=== PATIENT | female | born 1935 | race Two or more races ===

== ENCOUNTER 2019-02-17 13:09 | Inpatient (IN) | payer MEDICARE, MEDICAID ==
[~2019-02-17] VITALS: Ht 165.1 cm; Wt 51.5 kg
[2019-02-17 13:53] LABS: Basophils # (auto) 0 uL; Basophils % (auto) 0.6 % (0.0-2.0); Eosinophils # (auto) 0.1 uL; Eosinophils % (auto) 3.1 % (0.0-7.0); Hematocrit 43.7 % (36.0-46.0); Hemoglobin 14.8 g/dL (12.2-16.2); Lymphocytes # (auto) 1.3 uL; Lymphocytes % (auto) 28.2 % (10.0-50.0); Mean Corpuscular Hemoglobin 30.3 pg (28.0-32.0); Mean Corpuscular Hgb Conc. 33.8 g/dL (32.0-36.0); Mean Corpuscular Volume 89.6 fL (80.0-100.0); Monocytes # (auto) 0.3 uL; Monocytes % (auto) 7.6 % (0.0-12.0); Neutrophils # (auto) 2.8 uL; Neutrophils % (auto) 60.5 % (37.0-80.0); Nucleated Red Blood Cells % 0.1 %; Platelet Count (auto) 197 10^3/uL (140-450); Red Blood Cells 4.88 10^6/uL (4.0-5.20); Red Cell Distribution Width 14.4 % (11.8-14.3); White Blood Cell 4.6 10^3/uL (4.4-10.8)
[2019-02-17 14:03] LABS: Alanine Aminotransferase 104 U/L (13-56); Albumin 3.9 g/dL (3.4-5.0); Anion Gap 7 (5-15); Aspartate Aminotransferase 72 U/L (15-37); BUN/Creatinine Ratio 12.4; Blood Urea Nitrogen 18 mg/dL (7-18); Calcium 9.3 mg/dL (8.5-10.1); Carbon Dioxide 24 mmol/L (21-32); Chloride 107 mmol/L (98-107); GFR African American 44 mL/min; GFR Non-African American 37 mL/min; Glucose 169 mg/dL (74-106); Potassium 4.4 mmol/L (3.5-5.1); Sodium 138 mmol/L (136-145)
[2019-02-17 14:07] LABS: Alkaline Phosphatase 145 U/L (45-117); Bilirubin, Total 0.5 mg/dL (0.2-1.0); Total Protein 8.5 g/dL (6.4-8.2)
[2019-02-17 20:22] LABS: Urine Bacteria FEW /hpf (None Seen); Urine Blood Negative /uL (Negative); Urine Hyaline Cast FEW /lpf (0 - 2); Urine Specific Gravity 1.017 (1.001-1.035); Urine WBC 2 /hpf (0 - 5)
[2019-02-17] MEDS ORDERED: ONDANSETRON HCL 4 MG/2 ML VIAL IV ONE (21:00)
[2019-02-17] MEDS ORDERED: SODIUM CHLORIDE 0.9% 1,000 ML IV ONE (21:00)
[2019-02-17] MEDS ORDERED: metroNIDAZOLE 500MG/100ML 100 ML IV ONE (23:15)
[2019-02-18] VITALS (7 sets, daily range): BP systolic 138–164; BP diastolic 67–91
[2019-02-18] MEDS ORDERED: DEXTROSE (50%) 50ML SYRG IV PRN
[2019-02-18] MEDS ORDERED: MORPHINE SULF INJ 2 MG/ML SYRINGE 1ML IV PRN
[2019-02-18] MEDS ORDERED: SODIUM CHLORIDE 0.9% 1,000 ML IV SCH
[2019-02-18] MEDS ORDERED: NITROGLYCERIN 0.4 MG SL TAB SL PRN
[2019-02-18] MEDS ORDERED: METO25TA5 PO (00:21)
[2019-02-18] MEDS ORDERED: AMIT10TA6 PO (00:21)
[2019-02-18] MEDS ORDERED: CHOL100055 PO (00:21)
[2019-02-18] MEDS ORDERED: ATOR10TA52 PO (00:21)
[2019-02-18] MEDS ORDERED: ALEN70TA2 PO (00:21)
[2019-02-18] MEDS ORDERED: HYDR-2691 PO (00:21)
[2019-02-18] MEDS ORDERED: AML5T PO (00:21)
[2019-02-18] MEDS ORDERED: INSU70IN3 SC (00:21)
[2019-02-18] MEDS ORDERED: ACE3T PO (00:23)
[2019-02-18] MEDS: InsuLIN REG 1unit/0.01ml Soln (100units/ml) SC SCH ×5 (00:51→23:22)
[2019-02-18] MEDS: ACCU-CHEK COMFORT CURVE STRIP VI SCH ×5 (00:54→23:22)
--- NOTE | 2019-02-18 02:21 | NUR ---
Telemetry admit from ER Patient admitted to Telemetry unit and oriented to primary RN, unit, room, bed, and unit policies regarding patient care and visiting hours. Patient now on continuous telemetry monitoring, tele box #29 and telemetry reading on arrival to unit is sinus rhythm in the 70s. Bed is in lowest position and locked. Call light within reach. Board updated. Patient weighed by bedscale and encouraged to call if they need something. All questions and concerns addressed, patient verbalized understanding.
--- NOTE | 2019-02-18 02:53 | NUR ---
PATIENT NOT FAMILIAR WITH HOME MEDICATIONS. PATIENT STATES THAT WHILE A LIST OF HOME MEDICATIONS ARE AVAILABLE IN THE SYSTEM, PATIENT IS UNABLE TO VERIFY CORRECT MEDICATIONS OR DOSES. PATIENT STATES THAT DAUGHTER PREPARES MEDICATIONS AND PATIENT IS NOT FAMILIAR ENOUGH TO CONFIRM. WILL AWAIT DAUGHTER'S ARRIVAL IN MORNING TO CONFIRM MEDICATION LIST. ENDORSED TO HOTEL ATTENDANT RN.
[2019-02-18] MEDS: traMADol HCL 50 MG TAB PO PRN ×3 (04:41→23:11)
[2019-02-18] MEDS ORDERED: metroNIDAZOLE 500MG/100ML 100 ML IV SCH (06:00)
[2019-02-18 06:28] LABS: Basophils # (auto) 0 uL; Basophils % (auto) 0.6 % (0.0-2.0); Eosinophils # (auto) 0.1 uL; Eosinophils % (auto) 2.7 % (0.0-7.0); Hematocrit 40.5 % (36.0-46.0); Hemoglobin 13.4 g/dL (12.2-16.2); Lymphocytes # (auto) 1.3 uL; Lymphocytes % (auto) 30.5 % (10.0-50.0); Mean Corpuscular Hemoglobin 29.8 pg (28.0-32.0); Mean Corpuscular Volume 90.4 fL (80.0-100.0); Monocytes # (auto) 0.4 uL; Monocytes % (auto) 9.2 % (0.0-12.0); Neutrophils # (auto) 2.4 uL; Nucleated Red Blood Cells % 0.1 %; Platelet Count (auto) 156 10^3/uL (140-450); Red Blood Cells 4.48 10^6/uL (4.0-5.20); Red Cell Distribution Width 14.5 % (11.8-14.3); White Blood Cell 4.2 10^3/uL (4.4-10.8)
[2019-02-18 06:41] LABS: INR 0.96 (0.9-1.15)
[2019-02-18 06:59] LABS: BUN/Creatinine Ratio 12.4; Calcium 8.3 mg/dL (8.5-10.1); Potassium 3.9 mmol/L (3.5-5.1)
[2019-02-18 07:00] LABS: Albumin 3.4 g/dL (3.4-5.0); Bilirubin, Total 0.4 mg/dL (0.2-1.0); Total Protein 7.3 g/dL (6.4-8.2)
--- NOTE | 2019-02-18 08:00 | NUR ---
Morning note patient resting in bed with even and unlabored respirations, no distress noted. Instructed patient on POC, fall precautions and to call for assistance. Instruction provided through Guatemalan translation. Patient verbalized understanding. Fall precautions in place with bed in lowest locked position and call light within reach. Bed alarm on for safety. Will continue to monitor q1hr & PRN.
[2019-02-18] MEDS ORDERED: PANTOPRAZOLE 40 MG/10 ML VIAL INJ IV SCH (10:00)
[2019-02-18] MEDS: MORPHINE SULFATE 4 MG/ML SYR/VIAL IV PRN (10:35)
[2019-02-18] MEDS: LEVOFLOXACIN 250MG 50 ML IV SCH (10:36)
--- NOTE | 2019-02-18 10:41 | NUR ---
D/C Planning Per SS consult for advance directive. Information for Durable power of erisa attorney for health care was given to Pt at bedside. Pt verbalize understanding.
--- NOTE | 2019-02-18 10:45 | NUR ---
was at bedside - Dr. Bond
[2019-02-18] MEDS ORDERED: amLODIPine BESYLATE 5 MG TAB PO ONE ×2 (11:00→11:15)
[2019-02-18] MEDS ORDERED: METOPROLOL SUCCINATE XL 50 MG TAB PO ONE ×2 (11:00→11:15)
--- NOTE | 2019-02-18 11:00 | NUR ---
Nutrition consult/assessment Notes please see attached link for complete assessment. Est. Needs BW (62 kg): 3706-2081 kcal (25-30 kcal/kgBW), 49-62 gms pro (0.8-1.0 gms/kgBW d/t elev RFT CKD). Will continue to monitor pertinent labs and reassess nutrient need prn Addendum: 02/18/19 at [address] Amended: Links added.
[2019-02-18] MEDS ORDERED: PANTOPRAZOLE 40 MG/10 ML VIAL INJ IV ONE ×2 (11:15)
[2019-02-18] MEDS ORDERED: metroNIDAZOLE 500 MG TAB PO ONE (11:15)
[2019-02-18] MEDS: SODIUM CHLORIDE 0.9% 1,000 ML IV SCH (12:20)
--- NOTE | 2019-02-18 12:52 | NUR ---
Family called for update Patient's daughter, Claudia, called requesting update. Password obtained. Claudia spoke with Dr. Palacios's physician multimedia production assistant and received an update.
[2019-02-18] MEDS: metroNIDAZOLE 500 MG TAB PO SCH ×2 (14:00→22:00)
--- NOTE | 2019-02-18 14:21 | NUR ---
was at bedside - Dr. Suzanne MULLIGAN spoke with patient's daughter, Bernarda, at bedside RE: POC.
--- NOTE | 2019-02-18 14:34 | NUR ---
assessment Patient is a 83 year inés female who is alert and oriented. Patients daughter Fela is at bedside translating for us. Patients cognitive abilities are intact. Prior to admission patient lived home with her daughter Fela and family and functioned with assistance. Per patient she will return home to her prior living arrangements post discharge and Fela will transport her home. Patient has a fww, wheelchair, and bedside commode for home use. Patient was on service with [facility]. Per Fela patient to resume with [facility]. I informed patient she has a right to speak to a social work case manager regarding all care. I informed patient she has a right to participate in any and all discharge planning. Patient does not have a POA and advanced directive. I have offered patient information on POA and advanced directives. I informed the patient the advantages and benefits of having an Advanced Directive. Patient has been provided with advanced directive. Patient verbalized understanding and agreed to discharge plan. Addendum: 02/18/19 at 1437 by Anca ABEBE Amended: Links added.
--- NOTE | 2019-02-18 18:58 | NUR ---
Closing note patient resting in bed with even and unlabored respirations, no distress noted. Call light within reach.
--- NOTE | 2019-02-18 19:21 | NUR ---
Care endorsed to ORTIZ Gallagher.
[2019-02-18] MEDS: PANTOPRAZOLE 40 MG TAB PO SCH (22:00)
[2019-02-19 05:13] VITALS: BP 158/92
[2019-02-19] MEDS: InsuLIN REG 1unit/0.01ml Soln (100units/ml) SC SCH ×3 (06:00→17:13)
[2019-02-19 06:38] LABS: Basophils # (auto) 0 uL; Basophils % (auto) 0.6 % (0.0-2.0); Eosinophils # (auto) 0.1 uL; Eosinophils % (auto) 3.2 % (0.0-7.0); Hemoglobin 13.6 g/dL (12.2-16.2); Lymphocytes % (auto) 26.2 % (10.0-50.0); Mean Corpuscular Hemoglobin 29.8 pg (28.0-32.0); Mean Corpuscular Hgb Conc. 33.2 g/dL (32.0-36.0); Mean Corpuscular Volume 89.7 fL (80.0-100.0); Monocytes # (auto) 0.3 uL; Monocytes % (auto) 8.4 % (0.0-12.0); Neutrophils # (auto) 2.4 uL; Neutrophils % (auto) 61.6 % (37.0-80.0); Nucleated Red Blood Cells % 0.1 %; Platelet Count (auto) 153 10^3/uL (140-450); Red Blood Cells 4.57 10^6/uL (4.0-5.20); Red Cell Distribution Width 14.3 % (11.8-14.3); White Blood Cell 3.9 10^3/uL (4.4-10.8)
[2019-02-19 06:57] LABS: Albumin 3.3 g/dL (3.4-5.0); BUN/Creatinine Ratio 11.1; Calcium 8.4 mg/dL (8.5-10.1); Potassium 4.1 mmol/L (3.5-5.1)
[2019-02-19 07:00] LABS: Bilirubin, Total 0.5 mg/dL (0.2-1.0); Total Protein 7.2 g/dL (6.4-8.2)
[2019-02-19] MEDS: metroNIDAZOLE 500 MG TAB PO SCH ×3 (07:02→22:30)
[2019-02-19] MEDS: ONDANSETRON HCL 4 MG/2 ML VIAL IV PRN ×2 (07:04→22:31)
[2019-02-19] MEDS: ACCU-CHEK COMFORT CURVE STRIP VI SCH ×3 (07:04→17:13)
--- NOTE | 2019-02-19 07:45 | NUR ---
opening patient in bed, asleep, bed in lowest position,call light within reach. No distress noted at this time. will f/u with morning assessment.
[2019-02-19 08:39] VITALS: BP 154/74
[2019-02-19] MEDS: LEVOFLOXACIN 250MG 50 ML IV SCH (09:21)
[2019-02-19] MEDS: PANTOPRAZOLE 40 MG TAB PO SCH ×2 (09:22→22:30)
[2019-02-19] MEDS: amLODIPine BESYLATE 5 MG TAB PO SCH (09:22)
[2019-02-19] MEDS ORDERED: METOPROLOL SUCCINATE XL 50 MG TAB PO SCH (10:00)
--- NOTE | 2019-02-19 10:45 | NUR ---
md risa leija
[2019-02-19] MEDS ORDERED: PROMETHAZINE HCL 25 MG/ML 1ML IV ONE (11:00)
[2019-02-19] MEDS ORDERED: METOPROLOL TARTRATE 25 MG TAB PO ONE (12:30)
--- NOTE | 2019-02-19 12:30 | NUR ---
blood pressure pressure elevated to 176/89 informed MD, new orders for metoprolol to administer will give medications as ordered
[2019-02-19 13:00] VITALS: BP 176/89
[2019-02-19] MEDS: traMADol HCL 50 MG TAB PO PRN (15:14)
--- NOTE | 2019-02-19 16:18 | NUR ---
spoke with daughter per the daughters request of help filling out the forms for POA, talks to Anca Lee about it, she states the patient needs to fill out the paperwork as they wish and sign in front of a notary. patient and daughter informed about this, no other questions at this time
[2019-02-19 16:22] VITALS: BP 149/72
--- NOTE | 2019-02-19 19:30 | NUR ---
OPENING SHIFT NOTE Assumed care of patient who is A&Ox4. Currently on RA with no s/s of distress or SOB. Reports 7/10 ABD pain. Pain management options discussed with patient. Patient is able to transfer to BSC with standby assist at this time. POC discussed with patient who verbalizes understanding. All questions answered. Bed is in low locked position with side rails up x2. Call light is within reach and patient encouraged to call for assistance when needed. Will continue to monitor for changes PRN.
[2019-02-19 20:00] VITALS: BP 162/74
[2019-02-19] MEDS: SODIUM CHLORIDE 0.9% 1,000 ML IV SCH (20:05)
[2019-02-19 22:02] VITALS: BP 133/70
[2019-02-19] MEDS: MORPHINE SULFATE 4 MG/ML SYR/VIAL IV PRN (22:31)
[2019-02-19] MEDS: METOPROLOL TARTRATE 25 MG TAB PO SCH (22:38)
[2019-02-20] MEDS: ACCU-CHEK COMFORT CURVE STRIP VI SCH ×4 (00:04→18:01)
[2019-02-20] MEDS: MORPHINE SULFATE 4 MG/ML SYR/VIAL IV PRN ×3 (03:12→18:09)
--- NOTE | 2019-02-20 03:15 | NUR ---
Patient c/o 8/10 abdominal pain. Medicated per orders.
[2019-02-20 05:33] VITALS: BP 164/81
[2019-02-20] MEDS: metroNIDAZOLE 500 MG TAB PO SCH ×3 (05:33→21:46)
[2019-02-20] MEDS: InsuLIN REG 1unit/0.01ml Soln (100units/ml) SC SCH ×4 (05:34→18:00)
[2019-02-20] MEDS: SODIUM CHLORIDE 0.9% 1,000 ML IV SCH ×2 (05:48→12:45)
--- NOTE | 2019-02-20 05:54 | NUR ---
MYCOLOGY TEACHER reports BP of 164/81 with heart rate of 78. Reassessed by this RN and BP is 129/70; hear rate 80.
[2019-02-20 06:15] LABS: Basophils # (auto) 0 uL; Basophils % (auto) 0.5 % (0.0-2.0); Eosinophils # (auto) 0.1 uL; Eosinophils % (auto) 2.6 % (0.0-7.0); Hematocrit 39.2 % (36.0-46.0); Lymphocytes % (auto) 22.8 % (10.0-50.0); Mean Corpuscular Hemoglobin 29.9 pg (28.0-32.0); Mean Corpuscular Hgb Conc. 33.2 g/dL (32.0-36.0); Mean Corpuscular Volume 89.9 fL (80.0-100.0); Monocytes # (auto) 0.4 uL; Monocytes % (auto) 8.1 % (0.0-12.0); Nucleated Red Blood Cells % 0.1 %; Platelet Count (auto) 154 10^3/uL (140-450); Red Blood Cells 4.36 10^6/uL (4.0-5.20); Red Cell Distribution Width 14.1 % (11.8-14.3); White Blood Cell 4.5 10^3/uL (4.4-10.8)
[2019-02-20 06:27] LABS: Albumin 3.2 g/dL (3.4-5.0); BUN/Creatinine Ratio 10.3; Bilirubin, Total 0.5 mg/dL (0.2-1.0); Calcium 8.8 mg/dL (8.5-10.1)
[2019-02-20 08:00] VITALS: BP 162/74
[2019-02-20 08:02] VITALS: BP 141/79
[2019-02-20] MEDS: ONDANSETRON HCL 4 MG/2 ML VIAL IV PRN ×2 (08:25→18:06)
[2019-02-20] MEDS: LEVOFLOXACIN 250MG 50 ML IV SCH (09:38)
[2019-02-20] MEDS: PANTOPRAZOLE 40 MG TAB PO SCH ×2 (09:39→21:46)
[2019-02-20] MEDS: amLODIPine BESYLATE 5 MG TAB PO SCH (09:39)
[2019-02-20] MEDS: METOPROLOL TARTRATE 25 MG TAB PO SCH ×2 (09:40→21:47)
--- NOTE | 2019-02-20 10:50 | NUR ---
Hospitalist at bedside MD Bond at bedside, aware of patient's status. MD spoke to patient and pt's daughter in detail regarding Poc, labs and test results including AAA. Patient and daughter verbalized understanding. Awaiting EGD at this time. Cont care
--- NOTE | 2019-02-20 11:28 | NUR ---
Patient taken down to preop accompanied by pt's daughter. No distress or sob noted. Will cont care on arrival back to unit
[2019-02-20] MEDS ORDERED: LIDOCAINE VISCOUS 2% 15ML UD ONE (12:05)
[2019-02-20] MEDS ORDERED: FLUMAZENIL 0.1 MG/ML INJ 10ML MDV IV ONE (12:05)
[2019-02-20] MEDS ORDERED: SODIUM CHLORIDE LOCK 10 ML ONE (12:05)
[2019-02-20] MEDS ORDERED: NALOXONE HCL 0.4 MG/ML VIAL ONE (12:05)
[2019-02-20] MEDS ORDERED: diphenhdrAMINE HCL 50 MG/1 ML VL ONE (12:06)
[2019-02-20] MEDS ORDERED: MIDAZOLAM HCL 5 MG/ML-1ML VIAL ONE (12:06)
[2019-02-20] MEDS ORDERED: fentaNYL CITRATE 100 MCG/2 ML VL ONE (12:06)
[2019-02-20 12:13] VITALS: BP 143/72
--- NOTE | 2019-02-20 13:26 | NUR ---
Patient back from PACU No s/s of distress or sob noted. VSS. Patient denies pain at this time. Will cont care
[2019-02-20] MEDS: SUCRALFATE 1 GM/10 ML ORAL SUSP PO SCH ×3 (13:58→21:46)
[2019-02-20] MEDS: hydrALAZINE HCL 25 MG TAB PO SCH ×2 (14:28→21:47)
[2019-02-20 16:29] VITALS: BP 139/70
--- NOTE | 2019-02-20 19:05 | NUR ---
OPENING SHIFT NOTE Assumed care of patient who is A&O x4. On RA with no s/s of distress or SOB. Denies pain at this time. Patient is able to ambulate independently without the use of assistive devices. POC discussed with patient who verbalizes understanding. Call light is within reach and patient encouraged to call for assistance when needed. Will continue to monitor for changes PRN. Addendum: 02/20/19 at 2040 by JOSE HATHAWAY RN RN Disregard note. Wrong patient
--- NOTE | 2019-02-20 19:15 | NUR ---
OPENING SHIFT NOTE Assumed care of patient who is A&Ox4. Currently on RA with no s/s of SOB or distress. Reports mild abdominal pain. Patient has recently been medicated for pain. Patient is able to transfer to the bedside commode with standby assistance. Bed is in low locked position with side rails up x2. Call light is within reach; encouraged to call for assistance when needed. Will continue to monitor for changes PRN.
--- NOTE | 2019-02-20 19:15 | NUR ---
Patient care endorsed endorsed care to Jesi marte. Patient sitting up in bed in no distress or sob noted. Call light within reach. Fall precs in place per protocol.
[2019-02-20] MEDS: traMADol HCL 50 MG TAB PO PRN (20:55)
[2019-02-20 22:04] VITALS: BP 147/71
[2019-02-21] MEDS: ACCU-CHEK COMFORT CURVE STRIP VI SCH ×3 (00:23→11:45)
[2019-02-21] MEDS: MORPHINE SULFATE 4 MG/ML SYR/VIAL IV PRN (04:14)
[2019-02-21] MEDS: ONDANSETRON HCL 4 MG/2 ML VIAL IV PRN (04:14)
[2019-02-21 05:02] VITALS: BP 157/81
[2019-02-21] MEDS: InsuLIN REG 1unit/0.01ml Soln (100units/ml) SC SCH ×3 (06:00→12:00)
[2019-02-21] MEDS: SODIUM CHLORIDE 0.9% 1,000 ML IV SCH (06:11)
[2019-02-21] MEDS: hydrALAZINE HCL 25 MG TAB PO SCH ×2 (06:15→14:00)
[2019-02-21] MEDS: metroNIDAZOLE 500 MG TAB PO SCH ×2 (06:15→14:00)
[2019-02-21] MEDS: SUCRALFATE 1 GM/10 ML ORAL SUSP PO SCH ×2 (06:15→12:04)
--- NOTE | 2019-02-21 07:30 | NUR ---
Opening Shift Note Assuming care of patient at this time. Patient is awake and alert. Chinese speaking. Patient denies pain. Bed is locked and lowered with side rails up x2. Patient shows no signs or symptoms of distress or shortness of breath. Instructed patient on the plan of care for today and to call for assistance as needed. Bed is locked and lowered with side rails up x2. Call light within reach. Will continue to round hourly and as needed.
[2019-02-21 08:12] VITALS: BP 150/73
[2019-02-21] MEDS: LEVOFLOXACIN 250MG 50 ML IV SCH (09:32)
[2019-02-21] MEDS: PANTOPRAZOLE 40 MG TAB PO SCH (09:32)
[2019-02-21] MEDS: amLODIPine BESYLATE 5 MG TAB PO SCH (09:33)
[2019-02-21] MEDS: METOPROLOL TARTRATE 25 MG TAB PO SCH (09:34)
[2019-02-21] MEDS: traMADol HCL 50 MG TAB PO PRN (09:38)
[2019-02-21 12:02] VITALS: BP 130/63
[2019-02-21 13:43] VITALS: BP 150/73
--- NOTE | 2019-02-21 14:51 | NUR ---
Discharge Discharge instructions given as ordered. Encourage to follow up with PMD as instructed. All questions and concerns addressed. Patient verbalized understanding. Patient's daughter states she already scheduled a follow-up appointment. Home medications held in Pharmacy returned to patient, and IV removed with catheter intact, pressure dressing applied. Telemetry unit returned to ICU. Patient taken to vehicle via wheelchair with all personal belongings, accompanied by staff and family member. No distress noted at time of departure.
== END 2019-02-21 15:00 | disposition home health service (06) | DRG 241 ==
LOC: ER 13:09 → TELE 13:10 → TELE-CENTR 02-18 02:15
PROVIDERS: ADMIT Internal Medicine; ATTEND Internal Medicine
PROC: 0DB68ZX Excision of Stomach, Via Natural or Artificial Opening Endoscopic, Diagnostic (ICD-10-PCS; principal; 2019-02-20 12:08)
DX: K29.70 Gastritis, unspecified, without bleeding (principal); E11.22 Type 2 diabetes mellitus with diabetic chronic kidney disease; M48.54XA Collapsed vertebra, not elsewhere classified, thoracic region, initial encounter for fracture; N18.3 Chronic kidney disease, stage 3 (moderate); E78.5 Hyperlipidemia, unspecified; K57.30 Diverticulosis of large intestine without perforation or abscess without bleeding; I12.9 Hypertensive chronic kidney disease with stage 1 through stage 4 chronic kidney disease, or unspecified chronic kidney disease; I71.4 Abdominal aortic aneurysm, without rupture; K52.9 Noninfective gastroenteritis and colitis, unspecified
CPT/HCPCS: 36415; 43239; 71046; 74176; 76705; 80053; 81001; 82962; 83036; 83605; 83690; 84484; 85025; 85610; 85730; 87045; 87427; 94761; 96361; 96365; 96366; 96375; 97116; 97163; 97530; C9113; G0378; J2250; J2405; J3490

== ENCOUNTER 2019-10-14 13:18 | Inpatient (IN) | payer MEDICARE, MEDICAID ==
[~2019-10-14] VITALS: Ht 149.9 cm; Wt 68.5 kg
[~2019-10-14 13:18] MED LIST: ACE3T PO; ALEN70TA2 PO; AMIT10TA6 PO; AML5T PO; ATOR10TA52 PO; CHOL100055 PO; HYDR-2691 PO; INSU70IN3 SC; METO25TA5 PO
[2019-10-14] MEDS ORDERED: SODIUM CHLORIDE 0.9% 500 ML IVB ONE (13:29)
[2019-10-14] MEDS ORDERED: ONDANSETRON HCL 4 MG/2 ML VIAL IV ONE (13:30)
[2019-10-14 13:41] LABS: Basophils # (auto) 0 10 ^3/uL (0-0.2); Basophils % (auto) 0.5 % (0.0-2.0); Eosinophils # (auto) 0.1 10 ^3/uL (0-0.8); Eosinophils % (auto) 1.1 % (0.0-7.0); Hematocrit 38.6 % (36.0-46.0); Hemoglobin 12.7 g/dL (12.2-16.2); Lymphocytes % (auto) 21.2 % (10.0-50.0); Mean Corpuscular Hemoglobin 29.2 pg (28.0-32.0); Mean Corpuscular Hgb Conc. 32.9 g/dL (32.0-36.0); Mean Corpuscular Volume 88.6 fL (80.0-100.0); Monocytes # (auto) 0.4 10 ^3/uL (0-1.3); Monocytes % (auto) 7.5 % (0.0-12.0); Neutrophils # (auto) 3.4 10 ^3/uL (1.6-8.6); Neutrophils % (auto) 69.7 % (37.0-80.0); Nucleated Red Blood Cells % 0.1 %; Platelet Count (auto) 203 10^3/uL (140-450); Red Blood Cells 4.36 10^6/uL (4.0-5.20); Red Cell Distribution Width 15.3 % (11.8-14.3); White Blood Cell 4.9 10^3/uL (4.4-10.8)
[2019-10-14 14:01] LABS: Albumin 3.7 g/dL (3.4-5.0)
[2019-10-14 14:04] LABS: Bilirubin, Total 0.4 mg/dL (0.2-1.0); Total Protein 8.2 g/dL (6.4-8.2)
[2019-10-14 14:20] LABS: Urine Bacteria NONE SEEN /hpf (None Seen); Urine Blood Negative /uL (Negative); Urine Specific Gravity 1.009 (1.001-1.035); Urine WBC 1 /hpf (0 - 5)
[2019-10-14] MEDS ORDERED: SODIUM CHLORIDE 0.9% 1,000 ML IV SCH (17:47)
[2019-10-14] MEDS ORDERED: LORazepam 2MG/ML-1ML VIAL IV ONE (18:00)
[2019-10-14] MEDS ORDERED: MORPHINE SULF INJ 2 MG/ML SYRINGE 1ML IV PRN (18:00)
[2019-10-14] MEDS ORDERED: NITROGLYCERIN 0.4 MG SL TAB SL PRN (18:00)
[2019-10-14] MEDS: ZINC SULFATE 220mg CAP or TAB PO SCH (18:24)
[2019-10-14] MEDS: ASCORBIC ACID 1,000 MG TAB PO SCH (18:24)
[2019-10-14] MEDS: PIPERACILLIN-TAZOB 3.375GM 100 ML IV SCH (18:24)
[2019-10-14] MEDS: ENOXAPARIN SOD 30 MG/0.3 ML SYRINGE SC SCH (18:24)
[2019-10-14] MEDS: CHOLECALCIFEROL (VITD3) 1,000IU=25mCg TAB PO SCH (18:24)
[2019-10-14] MEDS: ACETAMINOPHEN 500 MG TAB PO PRN (18:26)
[2019-10-14 18:56] LABS: Magnesium 2.6 mg/dL (1.6-2.6)
[2019-10-14 19:05] LABS: CRP High Sensitivity 2.01 mg/dL (< 0.3)
[2019-10-14] MEDS: ATORVASTATIN 20 MG TAB PO SCH (21:50)
[2019-10-14] MEDS ORDERED: hydrALAZINE HCL 25 MG TAB PO SCH (22:00)
[2019-10-14] MEDS ORDERED: ALBUTEROL SULF HFA 90MCG INH 200DOSE IN SCH (22:00)
[2019-10-14 23:25] VITALS: BP 174/82
[2019-10-14] MEDS ORDERED: hydrALAZINE HCL 25 MG TAB PO PRN (23:45)
[2019-10-14] MEDS ORDERED: DEXTROSE (50%) 50ML SYRG IV PRN (23:45)
[2019-10-14] MEDS ORDERED: OXYCODONE W/ ACETAMINOPHEN 5/325MG TABLET PO PRN (23:45)
[2019-10-14] MEDS ORDERED: hydrALAZINE HCL 25 MG TAB PO ONE (23:45)
[2019-10-15] MEDS: AMITRIPTYLINE HCL 10 MG TAB PO SCH ×2 (00:20→22:02)
[2019-10-15] MEDS: PIPERACILLIN-TAZOB 3.375GM 100 ML IV SCH ×2 (00:20→06:10)
[2019-10-15 02:00] VITALS: BP 145/87
[2019-10-15 04:03] VITALS: BP 170/84
[2019-10-15] MEDS: InsuLIN REG 1unit/0.01ml Soln (100units/ml) SC SCH ×4 (06:10→22:00)
[2019-10-15] MEDS: ACCU-CHEK COMFORT CURVE STRIP VI SCH ×4 (06:11→22:03)
[2019-10-15 06:22] LABS: Albumin 2.9 g/dL (3.4-5.0); Potassium 4.4 mmol/L (3.5-5.1)
[2019-10-15 06:25] LABS: BUN/Creatinine Ratio 9.9; Bilirubin, Total 0.5 mg/dL (0.2-1.0); Total Protein 7.1 g/dL (6.4-8.2)
[2019-10-15 08:00] VITALS: BP 179/88
[2019-10-15 09:07] LABS: Basophils # (auto) 0 10 ^3/uL (0-0.2); Basophils % (auto) 0.5 % (0.0-2.0); Eosinophils # (auto) 0.1 10 ^3/uL (0-0.8); Eosinophils % (auto) 0.8 % (0.0-7.0); Hematocrit 37.8 % (36.0-46.0); Hemoglobin 12.4 g/dL (12.2-16.2); Lymphocytes # (auto) 0.8 10 ^3/uL (0.4-5.4); Lymphocytes % (auto) 12.2 % (10.0-50.0); Mean Corpuscular Hemoglobin 29.4 pg (28.0-32.0); Mean Corpuscular Hgb Conc. 32.9 g/dL (32.0-36.0); Mean Corpuscular Volume 89.3 fL (80.0-100.0); Monocytes # (auto) 0.5 10 ^3/uL (0-1.3); Monocytes % (auto) 7.8 % (0.0-12.0); Neutrophils # (auto) 4.9 10 ^3/uL (1.6-8.6); Neutrophils % (auto) 78.7 % (37.0-80.0); Nucleated Red Blood Cells % 0.1 %; Platelet Count (auto) 184 10^3/uL (140-450); Red Blood Cells 4.23 10^6/uL (4.0-5.20); Red Cell Distribution Width 15.4 % (11.8-14.3); White Blood Cell 6.2 10^3/uL (4.4-10.8)
[2019-10-15] MEDS: CHOLECALCIFEROL (VITD3) 1,000IU=25mCg TAB PO SCH (10:03)
[2019-10-15] MEDS: ZINC SULFATE 220mg CAP or TAB PO SCH (10:04)
[2019-10-15] MEDS: amLODIPine BESYLATE 5 MG TAB PO SCH (10:04)
[2019-10-15] MEDS: ENOXAPARIN SOD 30 MG/0.3 ML SYRINGE SC SCH (10:04)
[2019-10-15] MEDS: METOPROLOL TARTRATE 25 MG TAB PO SCH (10:04)
[2019-10-15] MEDS: ASCORBIC ACID 1,000 MG TAB PO SCH (10:04)
[2019-10-15] MEDS ORDERED: levoFLOXacin 750MG 150 ML IV ONE (11:00)
[2019-10-15] MEDS ORDERED: metroNIDAZOLE 500 MG TAB PO ONE (11:00)
[2019-10-15] MEDS ORDERED: ONDANSETRON HCL 4 MG/2 ML VIAL IV PRN (11:30)
[2019-10-15 12:00] VITALS: BP 168/75
[2019-10-15] MEDS: hydrALAZINE HCL 25 MG TAB PO SCH ×2 (13:00→22:02)
[2019-10-15] MEDS ORDERED: GOLYTELY 4L KIT PO ONE (15:45)
[2019-10-15 16:00] VITALS: BP 156/80
[2019-10-15] MEDS: ONDANSETRON HCL 4 MG/2 ML VIAL IV PRN (16:34)
[2019-10-15] MEDS ORDERED: METOCLOPRAMIDE HCL 5MG/ml INJ 2ml VIAL IV ONE (18:45)
[2019-10-15] MEDS: MORPHINE SULF INJ 2 MG/ML SYRINGE 1ML IV PRN (20:23)
[2019-10-15] MEDS: metroNIDAZOLE 500 MG TAB PO SCH (22:00)
[2019-10-15] MEDS: ATORVASTATIN 20 MG TAB PO SCH (22:02)
[2019-10-15 22:49] LABS: INR 1.07 (0.9-1.15)
[2019-10-16] MEDS ORDERED: GOLYTELY 4L KIT PO ONE (04:00)
[2019-10-16 05:00] VITALS: BP 145/72
[2019-10-16] MEDS: metroNIDAZOLE 500 MG TAB PO SCH ×3 (05:44→22:57)
[2019-10-16] MEDS: hydrALAZINE HCL 25 MG TAB PO SCH ×3 (05:44→22:57)
[2019-10-16] MEDS: ONDANSETRON HCL 4 MG/2 ML VIAL IV PRN (05:45)
[2019-10-16] MEDS: ACCU-CHEK COMFORT CURVE STRIP VI SCH ×4 (06:51→23:06)
[2019-10-16] MEDS: InsuLIN REG 1unit/0.01ml Soln (100units/ml) SC SCH ×4 (06:51→22:00)
[2019-10-16 08:00] VITALS: BP 151/64
[2019-10-16] MEDS ORDERED: NALOXONE HCL 0.4 MG/ML VIAL ONE (08:07)
[2019-10-16] MEDS ORDERED: FLUMAZENIL 0.1 MG/ML INJ 10ML MDV IV ONE (08:07)
[2019-10-16] MEDS ORDERED: fentaNYL CITRATE 100 MCG/2 ML VL ONE (08:08)
[2019-10-16] MEDS ORDERED: diphenhdrAMINE HCL 50 MG/1 ML VL ONE (08:08)
[2019-10-16] MEDS ORDERED: MIDAZOLAM HCL 5 MG/ML-1ML VIAL ONE (08:08)
[2019-10-16] MEDS ORDERED: SODIUM CHLORIDE LOCK 10 ML ONE (08:08)
[2019-10-16] MEDS: ACETAMINOPHEN 500 MG TAB PO PRN (09:04)
[2019-10-16] MEDS: METOPROLOL TARTRATE 25 MG TAB PO SCH (09:33)
[2019-10-16] MEDS: CHOLECALCIFEROL (VITD3) 1,000IU=25mCg TAB PO SCH (09:33)
[2019-10-16] MEDS: amLODIPine BESYLATE 5 MG TAB PO SCH (09:34)
[2019-10-16] MEDS: levoFLOXacin 750MG 150 ML IV SCH (09:35)
[2019-10-16] MEDS ORDERED: ACETAMINOPHEN 325 MG TAB PO PRN (11:30)
[2019-10-16] MEDS ORDERED: MORPHINE SULF INJ 2 MG/ML SYRINGE 1ML IV ONE (11:30)
[2019-10-16 12:00] VITALS: BP 143/77
[2019-10-16 17:00] VITALS: BP 153/74
[2019-10-16] MEDS: MORPHINE SULF INJ 2 MG/ML SYRINGE 1ML IV PRN ×2 (18:20→22:57)
[2019-10-16 20:00] VITALS: BP 143/78
[2019-10-16] MEDS: ATORVASTATIN 20 MG TAB PO SCH (22:56)
[2019-10-16] MEDS: AMITRIPTYLINE HCL 10 MG TAB PO SCH (22:57)
[2019-10-17] MEDS ORDERED: TEMAZEPAM 15 MG CAP PO ONE (01:00)
[2019-10-17 05:00] VITALS: BP 148/65
[2019-10-17] MEDS: metroNIDAZOLE 500 MG TAB PO SCH ×3 (06:40→22:40)
[2019-10-17] MEDS: InsuLIN REG 1unit/0.01ml Soln (100units/ml) SC SCH ×4 (06:40→22:00)
[2019-10-17] MEDS: hydrALAZINE HCL 25 MG TAB PO SCH ×3 (06:40→22:40)
[2019-10-17] MEDS: ACCU-CHEK COMFORT CURVE STRIP VI SCH ×4 (06:41→22:42)
[2019-10-17] MEDS: MORPHINE SULF INJ 2 MG/ML SYRINGE 1ML IV PRN ×2 (07:48→11:53)
[2019-10-17 08:08] VITALS: BP 165/87
[2019-10-17] MEDS ORDERED: SODIUM CHLORIDE LOCK 10 ML ONE (08:18)
[2019-10-17] MEDS ORDERED: FLUMAZENIL 0.1 MG/ML INJ 10ML MDV IV ONE (08:19)
[2019-10-17] MEDS ORDERED: NALOXONE HCL 0.4 MG/ML VIAL ONE (08:19)
[2019-10-17] MEDS ORDERED: MIDAZOLAM HCL 5 MG/ML-1ML VIAL ONE (08:20)
[2019-10-17] MEDS ORDERED: diphenhdrAMINE HCL 50 MG/1 ML VL ONE (08:20)
[2019-10-17 09:15] VITALS: BP 165/87
[2019-10-17] MEDS: fentaNYL CITRATE 100 MCG/2 ML VL ONE ×2 (09:30→09:34)
[2019-10-17] MEDS: levoFLOXacin 750MG 150 ML IV SCH (10:59)
[2019-10-17] MEDS: CHOLECALCIFEROL (VITD3) 1,000IU=25mCg TAB PO SCH (11:00)
[2019-10-17] MEDS: amLODIPine BESYLATE 5 MG TAB PO SCH (11:04)
[2019-10-17] MEDS: METOPROLOL TARTRATE 25 MG TAB PO SCH (11:05)
[2019-10-17 12:24] VITALS: BP 170/75
[2019-10-17] MEDS ORDERED: HCTZ 25 MG TAB PO ONE (12:45)
[2019-10-17 13:41] LABS: Basophils # (auto) 0 10 ^3/uL (0-0.2); Basophils % (auto) 0.5 % (0.0-2.0); Eosinophils # (auto) 0 10 ^3/uL (0-0.8); Eosinophils % (auto) 0.2 % (0.0-7.0); Hematocrit 35.2 % (36.0-46.0); Hemoglobin 11.4 g/dL (12.2-16.2); Lymphocytes # (auto) 0.7 10 ^3/uL (0.4-5.4); Lymphocytes % (auto) 13.2 % (10.0-50.0); Mean Corpuscular Hemoglobin 28.8 pg (28.0-32.0); Mean Corpuscular Hgb Conc. 32.4 g/dL (32.0-36.0); Mean Corpuscular Volume 88.9 fL (80.0-100.0); Monocytes # (auto) 0.5 10 ^3/uL (0-1.3); Monocytes % (auto) 9.2 % (0.0-12.0); Neutrophils % (auto) 76.9 % (37.0-80.0); Nucleated Red Blood Cells % 0.1 %; Platelet Count (auto) 195 10^3/uL (140-450); Red Blood Cells 3.96 10^6/uL (4.0-5.20); Red Cell Distribution Width 15.5 % (11.8-14.3); White Blood Cell 5.3 10^3/uL (4.4-10.8)
[2019-10-17 13:53] LABS: BUN/Creatinine Ratio 12.1; Calcium 8.3 mg/dL (8.5-10.1); Potassium 3.9 mmol/L (3.5-5.1)
[2019-10-17 16:25] VITALS: BP 150/73
[2019-10-17] MEDS: ACETAMINOPHEN/CODEINE#3 (300/30mg) TAB PO PRN (19:44)
[2019-10-17] MEDS: ONDANSETRON HCL 4 MG/2 ML VIAL IV PRN (19:44)
[2019-10-17] MEDS ORDERED: TEMAZEPAM 15 MG CAP PO PRN (21:00)
[2019-10-17 22:00] VITALS: BP 154/78
[2019-10-17] MEDS: AMITRIPTYLINE HCL 10 MG TAB PO SCH (22:40)
[2019-10-17] MEDS: ATORVASTATIN 20 MG TAB PO SCH (22:41)
[2019-10-18] VITALS (9 sets, daily range): BP systolic 126–157; BP diastolic 58–89
[2019-10-18] MEDS: ACETAMINOPHEN/CODEINE#3 (300/30mg) TAB PO PRN ×3 (02:07→14:50)
[2019-10-18] MEDS: metroNIDAZOLE 500 MG TAB PO SCH ×2 (06:27→14:48)
[2019-10-18] MEDS: hydrALAZINE HCL 25 MG TAB PO SCH ×2 (06:27→14:49)
[2019-10-18] MEDS: InsuLIN REG 1unit/0.01ml Soln (100units/ml) SC SCH ×3 (06:28→17:00)
[2019-10-18] MEDS: ACCU-CHEK COMFORT CURVE STRIP VI SCH ×3 (06:28→17:30)
[2019-10-18] MEDS: amLODIPine BESYLATE 5 MG TAB PO SCH (09:54)
[2019-10-18] MEDS: CHOLECALCIFEROL (VITD3) 1,000IU=25mCg TAB PO SCH (09:55)
[2019-10-18] MEDS: METOPROLOL TARTRATE 25 MG TAB PO SCH (09:55)
[2019-10-18] MEDS ORDERED: levoFLOXacin 250MG 50 ML IV SCH (10:00)
[2019-10-18] MEDS ORDERED: HCTZ 25 MG TAB PO SCH (10:00)
[2019-10-18] MEDS ORDERED: HYDR-2691 PO (12:59)
[2019-10-18] MEDS ORDERED: MET500T PO (12:59)
[2019-10-18] MEDS ORDERED: LEVO250T69 PO ×2 (13:01→13:04)
[2019-10-18] MEDS: ONDANSETRON HCL 4 MG/2 ML VIAL IV PRN (14:49)
== END 2019-10-18 18:00 | disposition home or self-care (01) | DRG 248 ==
LOC: ER 13:18 → EDBD 13:18 → TELE 13:19 → TELE-EAST 22:35
PROVIDERS: ADMIT Nurse Practitioner Acute Care; ATTEND Internal Medicine Nephrology
PROC: 5A09357 Assistance with Respiratory Ventilation, Less than 24 Consecutive Hours, Continuous Positive Airway Pressure (ICD-10-PCS; 2019-10-14)
PROC: 0DJD8ZZ Inspection of Lower Intestinal Tract, Via Natural or Artificial Opening Endoscopic (ICD-10-PCS; principal; 2019-10-17 09:26)
DX: A04.9 Bacterial intestinal infection, unspecified (principal); J96.01 Acute respiratory failure with hypoxia; J15.6 Pneumonia due to other Gram-negative bacteria; I48.91 Unspecified atrial fibrillation; E11.22 Type 2 diabetes mellitus with diabetic chronic kidney disease; M48.54XA Collapsed vertebra, not elsewhere classified, thoracic region, initial encounter for fracture; R65.10 Systemic inflammatory response syndrome (SIRS) of non-infectious origin without acute organ dysfunction; N18.3 Chronic kidney disease, stage 3 (moderate); E78.5 Hyperlipidemia, unspecified; I12.9 Hypertensive chronic kidney disease with stage 1 through stage 4 chronic kidney disease, or unspecified chronic kidney disease; M54.9 Dorsalgia, unspecified; K57.30 Diverticulosis of large intestine without perforation or abscess without bleeding; G89.29 Other chronic pain; I71.4 Abdominal aortic aneurysm, without rupture; Z79.4 Long term (current) use of insulin; Z79.83 Long term (current) use of bisphosphonates; Z80.3 Family history of malignant neoplasm of breast; Z86.79 Personal history of other diseases of the circulatory system; Z20.828 Contact with and (suspected) exposure to other viral communicable diseases
CPT/HCPCS: 36415; 45378; 71045; 74176; 80048; 80053; 81001; 82728; 82962; 83605; 83615; 83690; 83735; 84443; 85025; 85379; 85610; 86141; 86850; 86900; 86901; 87040; 87070; 87804; 87880; 93005; 93306; 93970; 96372; 96374; 96375; G0378; J1956; J2250; J2405; J2543